=== PATIENT | female | born 1970 | race Caucasian/White ===

== ENCOUNTER 2017-03-19 03:16 | Observation (INO) ==
[2017-03-19] MEDS ORDERED: Aspirin 81 MG TAB.CHEW PO ONE (04:18)
[2017-03-19] MEDS ORDERED: 0.9 % Sodium Chloride 500 ML IVC ONE (04:18)
[2017-03-19] MEDS: Nitroglycerin 0.4 MG TAB.SUBL SL ONE ×3 (04:49→05:28)
[2017-03-19 06:06] LABS: Basophils % 0.1 %; Eosinophils # 0.1 K/mcL (0.0-0.6); Eosinophils % 0.6 %; Hematocrit 36.9 % (35.3-44.9); Hemoglobin 12.4 g/dL (11.5-15.4); Immature Granulocytes % 0.4 % (0-4); Lymphocytes # 3.3 K/mcL (0.6-4.6); Lymphocytes % 23.3 %; Mean Corpuscular HGB Conc 33.6 g/dL (31.6-35.5); Mean Corpuscular Hemoglobin 28.2 pg (28.0-33.3); Mean Corpuscular Volume 84.1 fL (83.0-100.0); Mean Platelet Volume 10.1 fL (9.4-12.4); Monocytes # 0.7 K/mcL (0.0-1.3); Monocytes % 5.2 %; Platelet Count 233 K/mcL (140-400); Red Blood Count 4.39 M/mcL (3.82-4.97); Red Cell Distribution Width 14.1 % (11.5-14.5); Segmented Neutrophils % 70.4 %
--- NOTE | 2017-03-19 06:06 | Emergency Department Note ---
Disposition Clinical Impression: Chest pain, Hypertension Disposition: Still a Patient Condition: Fair Referrals: NONE,PCP [Primary Care Provider] - Time of Disposition: 06:10 Chest Pain HPI - General Stated Complaint: CP Time Seen by Provider: 03/19/17 04:17 Source: patient Mode of arrival: private vehicle Limitations: no limitations Vital Signs Reviewed: Yes Nursing Notes Reviewed: Yes - History of Present Illness HPI Narrative: 47-year-old female patient presents to the emergency department complaining of chest pain. Patient states that this occurred while she was at rest. Patient states that she currently has some type of internal heart monitor. Patient states a history of A. fib. Patient denies any current anticoagulant use. She does state that the pain radiates from her left chest into her arm. She denies any significant shortness of breath. She denies any recent illnesses. She denies any fever, chills, nausea or vomiting. She denies any abdominal or back pain. Pt complaint: chest pain Onset (ago): hour(s) (2) Duration: constant Onset: during rest Pain Location: left chest Severity: severe Severity scale (1-10): 8 Quality: tightness, heaviness Pain Radiation: none Improves with: nothing Worsens with: nothing Associated symptoms: Denies: nausea, vomiting, diaphoresis Treatments prior to arrival chest pain: none - Related Data Allergies Allergy/AdvReac Type Severity Reaction Status Date / Time clarithromycin [From Biaxin] Allergy Vomiting Verified 10/16/15 00:40 ketorolac [From Toradol] Allergy Hives Verified 10/16/15 00:40 tramadol Allergy Hives Verified 10/16/15 00:40 iv dye Allergy Swelling Uncoded 10/16/15 00:40 of Lip/Tongue/Throat All systems ED: reviewed and negative except as stated. Constitutional: Denies: fever, chills Cardiovascular: Reports: chest pain Respiratory: Denies: cough, dyspnea Gastrointestinal: Denies: abdominal pain, nausea, vomiting Musculoskeletal: Denies: back pain, neck pain Integumentary: Denies: rash, abrasion, lesions Neurological: Denies: headache Psychiatric: Denies: anxiety, depression, suicidal thoughts, homicidal thoughts Endocrine: Denies: fatigue Chest Pain PMH - Past Medical History Medical history: Reports: asthma, atrial fibrillation, diabetes, hypertension Psychiatric history: Reports: no psych history - Social History Smoking Status: Never smoker Alcohol use: Reports: none Drug use: Reports: none Physical Exam - General Limitations: no limitations General appearance: alert, in no apparent distress - Head Head exam: atraumatic, normocephalic, normal inspection - Eye Eye exam: Present: normal appearance, PERRL - Neck Neck exam: Present: normal inspection, full ROM, trachea midline - Chest Chest inspection: Present: normal inspection, symmetric chest wall rise - Respiratory Respiratory exam: Present: normal lung sounds bilaterally. Absent: respiratory distress - Cardiovascular Cardiovascular exam: Present: regular rate, normal rhythm, normal heart sounds - Abdominal Exam Abdominal exam: Present: soft, Non-Tender, normal bowel sounds - Extremities Exam Extremities exam: Present: normal inspection, full ROM. Absent: tenderness, pedal edema - Expanded Lower Extremity Exam Gait: observed and normal - Back Exam Back exam: Present: normal inspection, full ROM. Absent: tenderness - Neurological Exam Neurological exam: Present: alert, oriented X3 - Psychiatric Psychiatric exam: Present: normal affect, normal mood - Skin Skin exam: Present: warm, dry, intact, normal color Course Course Narrative: Patient has an extremely flat affect and is a poor historian. 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 Syeda Gilbert. When asked, who made this referral she stated her family doctor, however cannot recall who her family doctor is. She is however alert and oriented 3. She does not appear ill on exam. She is nontoxic appearing. She does not appear in any acute distress. Plan is to get laboratory evaluation , cardiac enzymes, CBC, chemistries and a chest x-ray. There are no acute changes on her EKG. We will get the patient's workup and reevaluate whether she requires admission or outpatient follow-up. Vital Signs Pulse Rate 82 03/19/17 04:51 Respiratory Rate 16 03/19/17 04:51 Blood Pressure 155/102 03/19/17 04:51 O2 Sat by Pulse Oximetry 97 03/19/17 04:51 Pulse Rate 82 03/19/17 04:51 Respiratory Rate 16 03/19/17 04:51 Blood Pressure 155/102 03/19/17 04:51 O2 Sat by Pulse Oximetry 97 03/19/17 04:51 Oxygen Delivery Oxygen Delivery Room Air
[2017-03-19 06:12] LABS: INR 2.3
[2017-03-19 06:15] LABS: Activated Partial Thrombo Time 31.9 Seconds (26.0-36.0); BUN/Creatinine Ratio 14 (6-26); Blood Urea Nitrogen 11 mg/dL (7-20); Calcium 8.3 mg/dL (8.6-10.8); Carbon Dioxide 21 mEq/L (19-29); Chloride 105 mEq/L (98-109); Glucose 94 mg/dL (70-99); Osmolality,Calculated 285 (280-300); Potassium 3.3 mEq/L (3.5-4.5); Sodium 138 mEq/L (136-145); eGFR For African Americans > 60 (> 60); eGFR For Non-African Americans > 60 (> 60)
--- NOTE | 2017-03-19 07:02 | Emergency Department Note ---
Disposition Clinical Impression: Hypokalemia, Hypocalcemia Chest pain Qualifiers: Chest pain type: precordial pain Qualified Code(s): R07.2 - Precordial pain Leukocytosis, unspecified Qualifiers: Leukocytosis type: unspecified Qualified Code(s): D72.829 - Elevated white blood cell count, unspecified Disposition: Admitted As Inpatient Condition: Fair Chest Pain HPI - General Chief Complaint: ED Chest Pain Stated Complaint: CP Time Seen by Provider: 03/19/17 04:17 Source: patient Mode of arrival: private vehicle Limitations: no limitations - History of Present Illness Pain Location: left chest Severity scale (1-10): 8 Quality: tightness, heaviness Improves with: nothing Worsens with: nothing Associated symptoms: Denies: nausea, vomiting, diaphoresis - Related Data Allergies Allergy/AdvReac Type Severity Reaction Status Date / Time clarithromycin [From Biaxin] Allergy Vomiting Verified 10/16/15 00:40 ketorolac [From Toradol] Allergy Hives Verified 10/16/15 00:40 tramadol Allergy Hives Verified 10/16/15 00:40 iv dye Allergy Swelling Uncoded 10/16/15 00:40 of Lip/Tongue/Throat Constitutional: Denies: fever, chills Cardiovascular: Reports: chest pain Respiratory: Denies: cough, dyspnea Gastrointestinal: Denies: abdominal pain, nausea, vomiting Musculoskeletal: Denies: back pain, neck pain Integumentary: Denies: rash, abrasion, lesions Neurological: Denies: headache Psychiatric: Denies: anxiety, depression, suicidal thoughts, homicidal thoughts Endocrine: Denies: fatigue Chest Pain PMH - Past Medical History Medical history: Reports: asthma, atrial fibrillation, diabetes, hypertension Psychiatric history: Reports: no psych history - Social History Smoking Status: Never smoker Alcohol use: Reports: none Drug use: Reports: none Physical Exam - General Limitations: no limitations General appearance: alert, in no apparent distress Course Course Narrative: I assumed care of this patient from Eugene Johnson PA-C at shift change. Report received is that the patient is experiencing midsternal chest pain that radiates to the left upper extremity. She has a history of arrhythmia as and some type of clotting disorder. She is a very poor historian. 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 She was traveling to [place], [place] with her family when she started having chest pain and thus was brought here for evaluation. She was pain-free transiently. However, her pain has now returned. A third sublingual nitroglycerin has been ordered along with morphine and Zofran. Her vitals are normal at this time. She is not tachypneic or tachycardic. She is not hypoxic and does not feel short of breath. Her symptoms are concerning for angina. She has had no recent leg pain or swelling and no recent procedures. She denies history of PE. She has a mild leukocytosis. However, I do not see any signs of infection. She is afebrile and her only complaint is that of chest pain. She has had no cough or recent URI symptoms. She describes no recent fevers. Her x-ray does not show pneumonia. She denies any skin rashes or lesions. She denies dysuria or diarrhea. The leukocytosis is possibly a stress reaction. Her EKG is normal with the exception of occasional PVCs. The EKG is unchanged compared to October 2015. X-ray is normal. Troponin is normal. Unfortunately, the patient reports that she had a nuclear stress test done earlier this year and was told that it was abnormal. She also describes a significant family history of coronary artery disease and ACS at a young age. The hospitalist was contacted for admission to rule out ACS. The case has been discussed with Dr. Riojas. He has had [id number] time with the patient and agrees with the assessment and plan. Vital Signs Pulse Rate 82 03/19/17 04:51 Respiratory Rate 16 03/19/17 04:51 Blood Pressure 155/102 03/19/17 04:51 O2 Sat by Pulse Oximetry 97 03/19/17 04:51 Pulse Rate 76 03/19/17 06:40 Respiratory Rate 16 03/19/17 06:40 Blood Pressure 115/74 03/19/17 06:40 O2 Sat by Pulse Oximetry 97 03/19/17 06:40 Oxygen Delivery Oxygen Delivery Room Air Chest Pain - Lab Data Result diagrams: 03/19/17 05:57 03/19/17 05:57 Lab Results 03/19/17 03/19/17 03/19/17 Range/Units 05:57 05:57 05:57 WBC 14.2 H (4.3-11.1) K/mcL RBC 4.39 (3.82-4.97) M/mcL Hgb 12.4 (11.5-15.4) g/dL Hct 36.9 (35.3-44.9) % MCV 84.1 (83.0-100.0) fL MCH 28.2 (28.0-33.3) pg MCHC 33.6 (31.6-35.5) g/dL RDW 14.1 (11.5-14.5) % Plt Count 233 (140-400) K/mcL MPV 10.1 (9.4-12.4) fL Immature Gran % 0.4 (0-4) % Seg Neutrophils % 70.4 % Lymphocytes % 23.3 % Monocytes % 5.2 % Eosinophils % 0.6 % Basophils % 0.1 % Neutrophils # 10.0 H (1.6-8.9) K/mcL Lymphocytes # 3.3 (0.6-4.6) K/mcL Monocytes # 0.7 (0.0-1.3) K/mcL Eosinophils # 0.1 (0.0-0.6) K/mcL Basophils # 0.0 (0.0-0.2) K/mcL PT 25.0 H (9.4-12.1) Seconds INR 2.3 APTT 31.9 (26.0-36.0) Seconds Sodium (136-145) mEq/L Potassium (3.5-4.5) mEq/L Chloride (98-109) mEq/L Carbon Dioxide (19-29) mEq/L BUN (7-20) mg/dL Creatinine (0.57-1.11) mg/dL Est GFR ( Amer) (> 60) Est GFR (Non-Af Amer) (> 60) BUN/Creatinine Ratio (6-26) Glucose (70-99) mg/dL Calculated Osmolality (280-300) Calcium (8.6-10.8) mg/dL Troponin I (0-0.03) ng/mL B-Natriuretic Peptide 15 (0-100) pg/mL 03/19/17 03/19/17 Range/Units 05:57 05:57 WBC (4.3-11.1) K/mcL RBC (3.82-4.97) M/mcL Hgb (11.5-15.4) g/dL Hct (35.3-44.9) % MCV (83.0-100.0) fL MCH (28.0-33.3) pg MCHC (31.6-35.5) g/dL RDW (11.5-14.5) % Plt Count (140-400) K/mcL MPV (9.4-12.4) fL Immature Gran % (0-4) % Seg Neutrophils % % Lymphocytes % % Monocytes % % Eosinophils % % Basophils % % Neutrophils # (1.6-8.9) K/mcL Lymphocytes # (0.6-4.6) K/mcL Monocytes # (0.0-1.3) K/mcL Eosinophils # (0.0-0.6) K/mcL Basophils # (0.0-0.2) K/mcL PT (9.4-12.1) Seconds INR APTT (26.0-36.0) Seconds Sodium 138 (136-145) mEq/L Potassium 3.3 L (3.5-4.5) mEq/L Chloride 105 (98-109) mEq/L Carbon Dioxide 21 (19-29) mEq/L BUN 11 (7-20) mg/dL Creatinine 0.76 (0.57-1.11) mg/dL Est GFR ( Amer) > 60 (> 60) Est GFR (Non-Af Amer) > 60 (> 60) BUN/Creatinine Ratio 14 (6-26) Glucose 94 (70-99) mg/dL Calculated Osmolality 285 (280-300) Calcium 8.3 L (8.6-10.8) mg/dL Troponin I 0.00 (0-0.03) ng/mL B-Natriuretic Peptide (0-100) pg/mL
[2017-03-19] MEDS ORDERED: Ondansetron 4 MG/2 ML VIAL IVP ONE (07:03)
[2017-03-19] MEDS ORDERED: *HR* Morphine 2 MG/ML SYRINGE IVP ONE (07:03)
[2017-03-19] MEDS ORDERED: Nitroglycerin 0.4 MG TAB.SUBL SL ONE (07:04)
--- NOTE | 2017-03-19 07:24 | Emergency Department Note ---
START Narrative - START START: For this encounter, I have reviewed the [employer] CAB DRIVER or PA documentation, treatment plan, and medical decision making; and I have had face to face time with this patient. 47yo F here for intermittent chest pain. hx of angina. pt has a loop recorder from her cards dr at [facility]. cxr neg. labs neg. states she had an abnormal stress test in past. cp free at the moment. will admit for observation
[2017-03-19] MEDS ORDERED: Naloxone 0.4 MG/ML INJ IVP PRN (12:10)
[2017-03-19] MEDS ORDERED: Acetaminophen 325 MG TABLET PO PRN (12:10)
[2017-03-19] MEDS ORDERED: *HR* HYDROcodone/Acet 5/325 mg TABLET PO PRN (12:10)
[2017-03-19] MEDS ORDERED: Albuterol 2.5 MG/3 ML NEBULIZER IH PRN (12:13)
[2017-03-19] MEDS ORDERED: Dextrose Gel 15 GM PO PRN ×2 (12:18)
[2017-03-19] MEDS ORDERED: *HR* Dextrose 50 % in Water (Syg) 50 ML SYRINGE IVP PRN (12:18)
[2017-03-19] MEDS ORDERED: D5% in Water 1,000 ML IVC PRN (12:18)
[2017-03-19] MEDS ORDERED: Potassium Chloride Elixir 20 MEQ/15 ML UDC PO ONE (12:21)
[2017-03-19 12:32] LABS: Bilirubin,Urine Negative (Negative); Blood,Urine Negative (Negative); Clarity,Urine Clear (Clear); Color,Urine Yellow (Yellow); Glucose,Urine (UA) 100 mg/dL (Normal); Ketones,Urine Negative (Negative); Leukocyte Esterase,Urine Small (Negative); Nitrite,Urine Negative (Negative); PH,Urine 6.5 pH Units (5.0-8.0); Protein,Urine Negative (Neg-Trace); Specific Gravity,Urine 1.024 (1.010-1.025); Urobilinogen,Urine Normal (Normal)
[2017-03-19 12:34] LABS: Bacteria,Urine None Seen per hpf (None-Few); Hyaline Casts,Urine None Seen per lpf (None-Few); Squamous Epithelial Cell,Urine Many per lpf (None-Few)
[2017-03-19] MEDS: Pantoprazole 40 MG VIAL IVP SCH (12:53)
[2017-03-19] MEDS: Nitroglycerin 0.4 MG TAB.SUBL SL PRN ×4 (12:53→22:21)
[2017-03-19] MEDS: Ondansetron 4 MG/2 ML VIAL IVP PRN ×2 (13:14→16:20)
--- NOTE | 2017-03-19 15:50 | Internal Med History&Physical ---
<PierremichelealexusMartin askew - Last Filed: 03/19/17 16:40> Date of Encounter: 03/19/17 Time of Encounter: 12:30 Assessment and Plan (1) Chest pain Current visit: Yes Status: Acute Patient presents with several days of chest pressure with radiation to left shoulder and neck. Patient also reports being hospitalized for A. fib previously and states she has internal heart monitor placed last year. Patient reports transient chest pain and pressure, dyspnea, and fatigue. Due to patient' s report of previous DVTs, concern was for possible PE but stat D-dimer was < 215. Bilateral venous Dopplers to rule out DVTs. Echocardiogram ordered. Patient to be placed on continuous cardiac telemetry and supplemental O2 with continuous SpO2 monitoring. First and second troponins 0.00. Will trend troponin x1. Will consider stress test based on echo results as well as cardiology consult based on echo and stress test results. Patient to be monitored closely for signs of cardiac and/or respiratory distress. Qualifiers: Chest pain type: precordial pain Qualified Code(s): R07.2 - Precordial pain (2) UTI (urinary tract infection) Current visit: Yes Status: Acute Patient presents with initial U/A indicative of culture and suspected UTI. Patient has WBC of 14.2 and reports previous UTI in the past. Urine culture ordered. Blood culture ordered d/t WBC of 14.2. IV ceftriaxone 1,000 mg daily ordered for infection coverage. Will monitor patient's infection status through follow-up labs. Qualifiers: Urinary tract infection type: site unspecified Hematuria presence: without hematuria Qualified Code(s): N39.0 - Urinary tract infection, site not specified (3) Hypocalcemia Current visit: Yes Status: Acute Patient presents with acute hypocalcemia on admission with level of 8.3. Patient received 1000 mg calcium carbonate in ED. Will monitor patient's calcium level in follow-up labs. (4) Hypokalemia Current visit: Yes Status: Acute Patient presents with acute hypokalemia and potassium of 3.3 on admission. 40 mEQ by mouth administered in the ED, however patient states by mouth potassium usually does not absorb well for her. 20 mEQ elixir ordered. Will monitor patient's potassium level and follow-up labs. (5) Diabetes Current visit: Yes Status: Chronic Patient presents with reported chronic diabetes currently takes no oral anti- hyperglycemics or insulin coverage. Blood glucose monitoring before meals at bedtime. A1c ordered. Low-dose correction insulin sliding scale ordered with hypoglycemic protocol. Qualifiers: Diabetes mellitus type: type 2 Diabetes mellitus complication status: with unspecified complications Diabetes mellitus snf insulin use: without snf use Qualified Code(s): E11.8 - Type 2 diabetes mellitus with unspecified complications (6) HTN (hypertension) Current visit: Yes Status: Chronic Patient presents with history of chronic hypertension. Will monitor patient and vital signs and continue patient's metoprolol, amlodipine, and lisinopril. Qualifiers: Hypertension type: essential hypertension Qualified Code(s): I10 - Essential (primary) hypertension (7) HLD (hyperlipidemia) Current visit: Yes Status: Chronic Patient presents with history of chronic hyperlipidemia. Lipid panel ordered and we will continue patient's Lipitor. Qualifiers: Hyperlipidemia type: pure hypercholesterolemia Qualified Code(s): E78.00 - Pure hypercholesterolemia, unspecified; E78.0 - Pure hypercholesterolemia (8) DVT prophylaxis Current visit: Yes Status: Acute Patient to continue Warfarin with pharmacy dosing for DVT prophylaxis. Internal Medicine - H&P: HPI Chief complaint: Chest pain Admitted From: Emergency Dept Plans for Post Hospital Care: Home History of present illness: Ms. Gardner is a 47 year old female with medical history of asthma, paroxysmal atrial fibrillation, bradycardia, diabetes, DVTs, hypertension, and hyperlipidemia. Patient also reports TIA in January due to plaque in bilateral carotids. Patient describes several days of chest pressure with radiation to left shoulder and neck. Patient also reports being hospitalized for A. fib previously and states she has internal heart monitor placed last year. Patient reports transient chest pain and pressure, dyspnea, and fatigue but denies fever , chills, recent illness, nausea, vomiting, palpitations, abdominal pain, dizziness, lightheadedness, vision changes, presyncope, or syncope. Patient reports she has never smoked. Patient also reports having a sinus infection approximately 3 weeks ago. Patient is a very poor historian. She reports she has some type of clotting disorder, sees a it corporate recruiter at [facility], and also sees a targeteer in [place]. On admission today, patient's vital signs include heart rate of 76 bpm, which were rate of 16, BP 115/74, and SPO2 97% on room air. Abnormal labs include WBC of 14.2 PTT of 25.0 potassium of 3.3 and calcium of 8.3. Initial troponin was 0.00. Due to patient's report of previous DVTs, concern was for possible PE cyst that d-dimer ordered which was less than 215. Bilateral venous Dopplers of the patient's lower extremities ordered. Echocardiogram ordered. Single view CXR today shows no acute cardiopulmonary process. Patient's EKG today shows sinus rhythm with occasional ventricular premature complexes. Patient is hemodynamically stable and reports no acute distress on examination. Heart rate was irregular and lungs clear on auscultation no pedal edema present. Information was taken from the patient, chart review, and previous medical records and imaging. Ms. Gardner is at high risk for cardiovascular event based on history, current symptoms, and risk factors only places observation status. Time spent with patient greater than 40 minutes. Past Med Surg Social Fam HX - Past Medical History Source: patient, old records reviewed Medical history: asthma, atrial fibrillation, DVT, diabetes, hyperlipidemia, hypertension, TIA Psychiatric history: no psych history - Past Surgical History Surgical History: other (Placement of loop recorder) - Social History Smoking Status: Never smoker Smokeless Tobacco Status: No Alcohol use: none Drug use: none Current living situation: Home, With Family Activity Level: Independent ambulation Recent Out of Country Travel Within the Last 8 Weeks: No Exposure or Possible Exposure to Illness During Travel: No - Family History Mother Race: Family Member Ethnicity: Non- Living Status: Still Living Hx Family Cardiac Disorders: Yes (CAD) Hx Family Cancer: Yes (Breast Cancer) Father Race: Family Member Ethnicity: Non- Living Status: Age at : 58 Cause of : Heart Attack Hx Family Cardiac Disorders: Yes (NH, HTN, HLD) Brother Race: Family Member Ethnicity: Non- Living Status: Still Living Hx Family Medical Disorders: No Sister Race: Family Member Ethnicity: Non- Living Status: Still Living Hx Family Medical Disorders: No Grandmother Race: Family Member Ethnicity: Non- Living Status: Age at : 83 Cause of : PE Hx Family Cardiac Disorders: Yes (HD, PE) Hx Family Endocrine Disorder: Yes (DM) Grandfather Race: Family Member Ethnicity: Non- Living Status: Age at : 70 Cause of : Lung cancer Hx Family Cancer: Yes (Lung) Internal Medicine - H&P: Meds Albuterol Neb [Proventil Neb] 2.5 mg IH Q4HR PRN 03/19/17 [History] Amlodipine Besylate 10 mg PO DAILY 03/19/17 [History] Aspirin [Lo-Dose Aspirin EC] 81 mg PO DAILY 03/19/17 [History] Atorvastatin Calcium [Lipitor] 20 mg PO DAILY 03/19/17 [History] Dicyclomine [Bentyl] 10 mg PO QID PRN 03/19/17 [History] Ergocalciferol (VITAMIN D2) [Vitamin D2] 50,000 unit PO QWEEK 03/19/17 [History] Lisinopril [Zestril] 10 mg PO DAILY 03/19/17 [History] Methotrexate [Otrexup] 15 mg PO QWEEK 03/19/17 [History] Metoprolol XL (24 HR) Succ [Toprol XL] 12.5 mg PO DAILY 03/19/17 [History] Ranolazine [Ranexa] 500 mg PO BID 03/19/17 [History] Warfarin [Coumadin] 90 mg PO DAILY 03/19/17 [History] 3 Allergy/AdvReac Type Severity Reaction Status Date / Time clarithromycin [From Biaxin] Allergy Vomiting Verified 10/16/15 00:40 ketorolac [From Toradol] Allergy Hives Verified 10/16/15 00:40 tramadol Allergy Hives Verified 10/16/15 00:40 iv dye Allergy Swelling Uncoded 10/16/15 00:40 of Lip/Tongue/Throat All Systems PM: A 10-system review of systems was performed and is negative for pertinent findings except as documented above in the HPI. - Constitutional Constitutional: no chills, no fever(s), no night sweats - EENT Eyes: no change in vision, no discharge, no pain, no photophobia Ears: no ear discharge, no ear pain, no tinnitus Nose, mouth and throat: no dysphagia, no nasal discharge, no neck pain, no sore throat - Breasts Breasts: as per HPI - Cardiovascular Cardiovascular ROS IM: as per HPI, chest pain, irregular heart rhythm - Respiratory Respiratory: no cough, no dyspnea, no wheezing, no excessive phlegm production - Gastrointestinal Gastrointestinal: no abdominal pain, no diarrhea, no hematemesis, no hematochezia, no melena, no nausea, no vomiting - Genitourinary Genitourinary: no change in urinary stream, no dysuria, no flank pain, no hematuria Menstruation: as per HPI - Musculoskeletal Musculoskeletal ROS IM: no numbness, no tingling - Integumentary Integumentary IM: no rash, no unusual bruising - Neurological Neurological ROS: no confusion, no convulsions, no focal weakness, no numbness, no tingling, no tremor(s) - Psychiatric Psychiatric: as per HPI - Endocrine Endocrine IM: as per HPI - Hematologic/Lymphatic Hematologic/Lymphatic: no easy bruising - Allergic/Immunologic Allergic/Immunologic: as per HPI - Constitutional Vitals: Temp Pulse Resp BP Pulse Ox 99.1 F 81 16 133/78 96 03/19/17 14:51 03/19/17 14:51 03/19/17 14:51 03/19/17 14:51 03/19/17 14:51 General appearance: Present: cooperative, mild distress, A&O X 3, pleasant, obese, answers questions appropriately - Head Head exam: Present: atraumatic, normocephalic - Eye Eye exam: Present: PERRL, conjuntiva pink, sclera anicteric Pupils: Present: PERRL - ENT ENT exam: Present: normal exam, normal external ear exam - Neck Neck exam general surgery: Present: normal inspection, supple, trachea midline. Absent: lymphadenopathy - Respiratory Respiratory exam: Present: CTAB. Absent: accessory muscle use, rales, rhonchi, wheezes - Cardiovascular Cardiovascular exam: Present: irregular rhythm - GI/Abdominal GI/Abdominal exam: Present: normal bowel sounds, soft, no peritoneal signs. Absent: distended, tenderness - Rectal Rectal exam: Present: deferred - Additional comments: exam deferred. - Extremities Exam Extremities exam: Present: warm, radial pulses palpable and symmetrical. Absent : calf tenderness, cyanotic, pedal edema - Back Exam Back exam: Present: normal inspection - Neurological Exam Neurological exam: Present: CN II-XII intact, oriented X3, no focal deficits. Absent: pronater drift, facial droop, speech deficit - Skin Skin exam: Present: dry, intact Internal Med - H&P Results - Labs CBC & Chem 7: 03/19/17 05:57 03/19/17 05:57 Labs: Cardiac Enzymes 03/19/17 Range/Units 12:49 Troponin I 0.00 (0-0.03) ng/mL Urine 03/19/17 Range/Units 10:29 Urine Color Yellow (Yellow) Urine Clarity Clear (Clear) Urine pH 6.5 (5.0-8.0) pH Units Ur Specific [place] 1.024 (1.010-1.025) Urine Protein Negative (Neg-Trace) mg/dL Urine Glucose (UA) 100 H (Normal) mg/dL - EKG Data EKG shows normal: sinus rhythm - EKG Data Prior EKG available for review: yes EKG comments: 03/19/17 16:14 EKG dated 10/16/15 shows sinus rhythm. EKG dated 03/19/17 shows sinus rhythm with occasional ventricular premature complexes. - Diagnostic Studies Chest x-ray Additional comments: Impressions Chest X-Ray 03/19/17 04:18 IMPRESSION: No acute cardiopulmonary process. D/ / Chaim Walton MD / Chaim Walton MD Interpreting Provider: Chaim Walton MD <Dylon Wolfe R - Last Filed: 03/19/17 17:58> Date of Encounter: 03/19/17 Internal Medicine - H&P: HPI History of present illness: Ms. Gardner is a 47 year old female All Systems PM: A 10-system review of systems was performed and is negative for pertinent findings except as documented above in the HPI. - Constitutional Vitals: Temp Pulse Resp BP Pulse Ox 99.1 F 81 16 133/78 96 03/19/17 14:51 03/19/17 14:51 03/19/17 14:51 03/19/17 14:51 03/19/17 14:51 Internal Med - H&P Results - Labs CBC & Chem 7: 03/19/17 05:57 03/19/17 05:57 Labs: Cardiac Enzymes 03/19/17 Range/Units 12:49 Troponin I 0.00 (0-0.03) ng/mL Urine 03/19/17 Range/Units 10:29 Urine Color Yellow (Yellow) Urine Clarity Clear (Clear) Urine pH 6.5 (5.0-8.0) pH Units Ur Specific [place] 1.024 (1.010-1.025) Urine Protein Negative (Neg-Trace) mg/dL Urine Glucose (UA) 100 H (Normal) mg/dL - Attending Attestation I personally interviewed and examined this pt. Agree with the findings,a ssessment and plan of MAGALIE Gardner. Work up as outlined. I am not convinced she has UTI. Sx currently resolved. Trops negative. Continue to monitor.
[2017-03-19] MEDS: *HR* Morphine 2 MG/ML SYRINGE IVP PRN ×2 (16:19→22:22)
[2017-03-19] MEDS: Insulin LISPRO 300 UNITS/3 ML VIAL SQ SCH (16:54)
[2017-03-19] MEDS ORDERED: Warfarin perPT PO PRN (18:00)
[2017-03-19] MEDS ORDERED: *HR* Warfarin 10 MG TABLET PO SCH ×2 (18:00)
[2017-03-19] MEDS ORDERED: Insulin LISPRO 300 UNITS/3 ML VIAL SQ SCH (21:00)
[2017-03-19] MEDS: Ranolazine 500 MG TAB.ER.12H PO SCH (22:17)
[2017-03-20] MEDS ORDERED: *HR* Warfarin 10 MG TABLET PO SCH (06:00)
[2017-03-20 06:48] LABS: INR 1.8; Prothrombin Time 19.7 Seconds (9.4-12.1)
[2017-03-20 06:51] LABS: Activated Partial Thrombo Time 34.2 Seconds (26.0-36.0)
[2017-03-20 06:56] LABS: Basophils % 0.2 %; Eosinophils # 0.2 K/mcL (0.0-0.6); Eosinophils % 2.2 %; Hematocrit 38.1 % (35.3-44.9); Hemoglobin 12.6 g/dL (11.5-15.4); Immature Granulocytes % 0.4 % (0-4); Lymphocytes % 37.4 %; Mean Corpuscular HGB Conc 33.1 g/dL (31.6-35.5); Mean Corpuscular Hemoglobin 28.8 pg (28.0-33.3); Mean Corpuscular Volume 87.2 fL (83.0-100.0); Mean Platelet Volume 9.5 fL (9.4-12.4); Monocytes # 0.4 K/mcL (0.0-1.3); Monocytes % 5.4 %; Neutrophils # 4.4 K/mcL (1.6-8.9); Platelet Count 228 K/mcL (140-400); Red Blood Count 4.37 M/mcL (3.82-4.97); Red Cell Distribution Width 14.6 % (11.5-14.5); Segmented Neutrophils % 54.4 %
[2017-03-20 07:01] LABS: Alanine Aminotransferase 22 Units/L (0-55); Albumin 3.2 g/dL (3.5-5.0); Alkaline Phosphatase 87 Units/L (38-126); Aspartate Amino Transferase 14 Units/L (5-34); BUN/Creatinine Ratio 14 (6-26); Bilirubin,Total 0.4 mg/dL (0.2-1.2); Blood Urea Nitrogen 12 mg/dL (7-20); Calcium 8.5 mg/dL (8.6-10.8); Carbon Dioxide 24 mEq/L (19-29); Chloride 106 mEq/L (98-109); Chol/HDL Ratio 2.4 (0-4.9); Cholesterol 142 mg/dL (< 200); Globulin 3.3 g/dL (2.4-3.5); Glucose 88 mg/dL (70-99); HDL Cholesterol 59 mg/dL (40-59); LDL Cholesterol,Calculated 68 mg/dL (0-99); Magnesium 1.8 mg/dL (1.6-2.6); Osmolality,Calculated 283 (280-300); Potassium 4.1 mEq/L (3.5-4.5); Sodium 137 mEq/L (136-145); Total Protein 6.5 g/dL (6.0-8.3); Triglycerides 76 mg/dL (< 150); eGFR For African Americans > 60 (> 60); eGFR For Non-African Americans > 60 (> 60)
[2017-03-20 07:30] LABS: Hemoglobin A1C 5.6 %
[2017-03-20] MEDS: Ranolazine 500 MG TAB.ER.12H PO SCH (08:44)
[2017-03-20] MEDS: Insulin LISPRO 300 UNITS/3 ML VIAL SQ SCH ×3 (08:46→16:19)
[2017-03-20] MEDS: Pantoprazole 40 MG VIAL IVP SCH (08:47)
[2017-03-20] MEDS ORDERED: Aspirin Enteric Coated 81 MG Tablet PO SCH (09:00)
[2017-03-20] MEDS ORDERED: amLODIPine 5 MG TABLET PO SCH (09:00)
[2017-03-20] MEDS ORDERED: Metoprolol XL (24 HR) Succ 25 MG TAB.ER.24H PO SCH (09:00)
--- NOTE | 2017-03-20 15:57 | Venous Imaging Report ---
LE Venous Duplex Patient Name:Elle Gardner Order Number:[id number] Procedure Date:03/19/2017 Date:1970Age:47 yrs Gender:Female Location:[facility] Room #: 3B49 Stem Roller Operator:Dyana Hunter RDCS Referring MD:Martin Wasserman, WATER TAXI FERRY OPERATOR Reading MD:Lukas Martinez MD , FACS Primary Indications:Hx of DVT Secondary Indications: Risk Factors Yes/No Hx of DVT Yes Anticoagulants Yes Hypertension Yes Diabetes Yes Hypercholesterolemia Yes Impressions: Bilateral lower extremity: normal superficial and deep exam. Recommendations: After imaging the patient returned to their room. Findings Venous Duplex Results: Right: Venous imaging of the lower extremity reveals full patency and normal vessel compressibility of the right distal iliac, right common femoral, right superficial femoral, right popliteal, right posterior tibial, right peroneal, right great saphenous and right lesser saphenous. Doppler signals in the evaluated veins were normal. Left: Venous imaging of the lower extremity reveals full patency and normal vessel compressibility of the left distal iliac, left common femoral, left superficial femoral, left popliteal, left posterior tibial, left peroneal, left great saphenous and left lesser saphenous. Doppler signals in the evaluated veins were normal. Prior Study: No prior study available for comparison. Lower Extremity Venous Duplex Side Vein Compress Spontaneous Flow Augment Diameter (cm) Depth (cm) Right Distal Iliac Normal Yes Phasic Yes Right Common Femoral Normal Yes Phasic Yes Right Superficial Femoral Normal Yes Phasic Yes Right Popliteal Normal Yes Phasic Yes Right Posterior Tibial Normal Yes Phasic Yes Right Peroneal Normal Yes Phasic Yes Right Great Saphenous Normal Yes Phasic Yes Right Lesser Saphenous Normal Yes Phasic Yes Left Distal Iliac Normal Yes Phasic Yes Left Common Femoral Normal Yes Phasic Yes Left Superficial Femoral Normal Yes Phasic Yes Left Popliteal Normal Yes Phasic Yes Left Posterior Tibial Normal Yes Phasic Yes Left Peroneal Normal Yes Phasic Yes Left Great Saphenous Normal Yes Phasic Yes Left Lesser Saphenous Normal Yes Phasic Yes Updated by Lukas Martinez MD, FACS on 03/20/2017 3:49:22 PM Lukas Martinez MD electronically signed on 03/20/2017 3:49:49 PM with status of Final
[2017-03-20 16:11] VITALS: BP 142/92
--- NOTE | 2017-03-20 17:10 | Internal Med Progress Note ---
Date of Encounter: 03/20/17 Time of Encounter: 15:50 - Assessment and plan (1) Chest pain Current Visit: Yes Status: Acute Assessment and plan: Patient denies chest pain currently. Patient had an echocardiogram today. LVEF 6065%, no significant valvular dysfunction. Is requesting cardiology outpatient consultation. We will consult cardiology in the morning Continue telemetry Nitroglycerin for chest pain Cardiology consult Continue aspirin, Coumadin, Lipitor, and beta cristóbal. Patient also takes Ranexa. Qualifiers: Chest pain type: precordial pain Qualified Code(s): R07.2 - Precordial pain (2) Hypokalemia Current Visit: Yes Status: Resolved (3) Hypocalcemia Current Visit: Yes Status: Acute Assessment and plan: Improving. Continue calcium carbonate. (4) UTI (urinary tract infection) Current Visit: Yes Status: Acute Assessment and plan: Urine culture was negative. Rocephin has been stopped. Qualifiers: Urinary tract infection type: site unspecified Hematuria presence: without hematuria Qualified Code(s): N39.0 - Urinary tract infection, site not specified (5) DVT prophylaxis Current Visit: Yes Status: Acute Assessment and plan: Patient is on Coumadin. She is ambulatory. (6) Diabetes Current Visit: Yes Status: Chronic Assessment and plan: A1c is 5.6. Continue Accu-Cheks, sliding scale insulin, diabetic diet. Qualifiers: Diabetes mellitus type: type 2 Diabetes mellitus complication status: with unspecified complications Diabetes mellitus assisted insulin use: without assisted use Qualified Code(s): E11.8 - Type 2 diabetes mellitus with unspecified complications (7) HTN (hypertension) Current Visit: Yes Status: Chronic Assessment and plan: Continue home medications. Qualifiers: Hypertension type: essential hypertension Qualified Code(s): I10 - Essential (primary) hypertension - Time Spent With Patient less than 15 minutes - Subjective Interval history: Patient was seen and assessed at 1550. She is resting quietly and darkened room in alert and oriented. She states right now she is just okay. She denies chest pain at this time. She is unable to pinpoint when her chest pain started , she states that she was in the car 2 hours away when it began and she came immediately to the emergency department. She says pressure in the midsternal area that radiates to the left shoulder at times. Currently she is chest pain free. During the discussion, she states that she had her chest pain several days ago, then states that her chest pain actually began in November when she had [place] stress [place]. She says that she had a stress test in [place] and is unsure where, what city, or what hospital. I suggested she try to remember so we could not get the test results. She said that she had an abnormal area in the "top part of her heart" and required a stress test, however she declined. She also states that she has an internal chest monitor for bradycardia and "arrhythmia". Says sometimes she has A. fib and she has had this for 4 years. She does not have a director systems and states that she only follows up with EP if there something wrong with the implanted device. There is no note of the device on either the echo or the chest x-ray. Patient states his I am leaving the room that she would like to just have an outpatient cardiology consultation would like to go home. - Constitutional Vitals: Temp Pulse Resp BP Pulse Ox 98.1 F 92 14 142/92 97 03/20/17 16:09 03/20/17 16:09 03/20/17 16:09 03/20/17 16:03/20/17 16:09 General appearance: Present: cooperative, mild distress, A&O X 3, pleasant, obese, answers questions appropriately - Head Head exam: Present: atraumatic, normal inspection, normocephalic - Eye Eye exam: Present: normal appearance, conjuntiva pink, sclera anicteric - Neck Neck exam general surgery: Present: normal inspection, supple, trachea midline. Absent: lymphadenopathy, tenderness - Respiratory Respiratory exam: Present: CTAB. Absent: accessory muscle use, chest wall tenderness, decreased breath sounds, rales, rhonchi, wheezes - Cardiovascular Cardiovascular exam: Present: RRR, +S1, +S2. Absent: diastolic murmur, gallop, rubs, systolic murmur - GI/Abdominal GI/Abdominal exam: Present: normal bowel sounds, soft, no peritoneal signs. Absent: distended, tenderness - Extremities Exam Extremities exam: Present: normal inspection, warm, radial pulses palpable and symmetrical. Absent: calf tenderness, cyanotic, pedal edema, tenderness - Neurological Exam Neurological exam: Present: alert, oriented X3, no focal deficits. Absent: facial droop, speech deficit - Skin Skin exam: Present: dry, intact, normal color, warm. Absent: rash Internal Medicine: Result - Labs CBC & Chem 7: 03/20/17 06:35 03/20/17 06:35 Labs: Short CBC 03/20/17 Range/Units 06:35 WBC 8.0 (4.3-11.1) K/mcL Hgb 12.6 (11.5-15.4) g/dL Hct 38.1 (35.3-44.9) % Plt Count 228 (140-400) K/mcL Neutrophils # 4.4 (1.6-8.9) K/mcL BMP 03/20/17 06:35 Sodium 137 Potassium 4.1 Chloride 106 Carbon Dioxide 24 BUN 12 Creatinine 0.83 Glucose 88 Calcium 8.5 L Cardiac Enzymes 03/19/17 Range/Units 17:51 Troponin I 0.00 (0-0.03) ng/mL Liver Function 03/20/17 Range/Units 06:35 Total Bilirubin 0.4 (0.2-1.2) mg/dL AST 14 (5-34) Units/L ALT 22 (0-55) Units/L Alkaline Phosphatase 87 (38-126) Units/L Albumin 3.2 L (3.5-5.0) g/dL - ABG Interpretation ABG results: PT/INR, D-dimer PT 19.7 Seconds (9.4-12.1) H 03/20/17 06:35 D-Dimer < 215 ng/mLFEU (0-500) 03/19/17 12:49 Consult Discharge Plan - Plan
[2017-03-22] MEDS ORDERED: *HR* Methotrexate 2.5 MG TABLET PO SCH (09:00)
--- NOTE | 2017-03-23 18:25 | Discharge Summary ---
Date of Encounter: 03/23/17 Time of Encounter: 15:50 - Discharge Diagnosis (1) Chest pain Priority: Primary Status: Acute Comments: Denied chest pain echo done day of AMA. Patient wanted cardiology outpatient consultation. Continue aspirin, Coumadin, Lipitor, beta cristóbal patient also takes Ranexa. Qualifiers: Chest pain type: precordial pain Qualified Code(s): R07.2 - Precordial pain (2) Hypokalemia Priority: Secondary Status: Resolved Comments: Resolved. (3) Hypocalcemia Priority: Secondary Status: Acute Comments: It was improving prior to her signing out AMA. (4) UTI (urinary tract infection) Priority: Secondary Status: Acute Comments: Patient was treated empirically. Urine culture was negative. Rocephin was stopped. Qualifiers: Urinary tract infection type: site unspecified Hematuria presence: without hematuria Qualified Code(s): N39.0 - Urinary tract infection, site not specified (5) DVT prophylaxis Priority: Secondary Status: Acute Comments: Patient was on Coumadin. She was ambulatory. (6) Diabetes Priority: Secondary Status: Chronic Comments: She was to continue home medications on discharge. Continue Accu-Cheks per her schedule. Qualifiers: Diabetes mellitus type: type 2 Diabetes mellitus complication status: with unspecified complications Diabetes mellitus corral boss insulin use: without corral boss use Qualified Code(s): E11.8 - Type 2 diabetes mellitus with unspecified complications (7) HTN (hypertension) Priority: Secondary Status: Chronic Comments: Continue home medications. Qualifiers: Hypertension type: essential hypertension Qualified Code(s): I10 - Essential (primary) hypertension - Discharge Medications Home Medications: Albuterol Neb [Proventil Neb] 2.5 mg IH Q4HR PRN 03/19/17 [History] Amlodipine Besylate 10 mg PO DAILY 03/19/17 [History] Aspirin [Lo-Dose Aspirin EC] 81 mg PO DAILY 03/19/17 [History] Atorvastatin Calcium [Lipitor] 20 mg PO DAILY 03/19/17 [History] Dicyclomine [Bentyl] 10 mg PO QID PRN 03/19/17 [History] Ergocalciferol (VITAMIN D2) [Vitamin D2] 50,000 unit PO QWEEK 03/19/17 [History] Lisinopril [Zestril] 10 mg PO DAILY 03/19/17 [History] Methotrexate [Otrexup] 15 mg PO QWEEK 03/19/17 [History] Metoprolol XL (24 HR) Succ [Toprol XL] 12.5 mg PO DAILY 03/19/17 [History] Ranolazine [Ranexa] 500 mg PO BID 03/19/17 [History] Warfarin [Coumadin] 90 mg PO DAILY 03/19/17 [History] Allergies/Adverse Reactions: 3 Allergy/AdvReac Type Severity Reaction Status Date / Time clarithromycin [From Biaxin] Allergy Vomiting Verified 10/16/15 00:40 ketorolac [From Toradol] Allergy Hives Verified 10/16/15 00:40 tramadol Allergy Hives Verified 10/16/15 00:40 iv dye Allergy Swelling Uncoded 10/16/15 00:40 of Lip/Tongue/Throat Date of admission: 03/19/17 07:07 Primary care physician: PCP NONE Consults: 03/20/17 17:26 Consult to Cardiology [CONS] Routine Comment: Consulting Provider: Cardiology Kellen Reason for Consult: implanted device, history of bradycardia, a-fib. Pt admitted for chest pain. States that she recently had a stress test in November, unsure of where. Call Completed: No Discharging clinician: Elena Aldrich Anticipated date of discharge: 03/20/17 - Patient Status Disposition: Left Against Medical Advice Condition: Good Functional capacity at discharge: independent ambulation Overall status at discharge: patient is back to baseline - Discharge Instructions Follow Up With: NONE,PCP [Primary Care Provider] - Forms: ED Satisfaction Letter Additional Instructions: Patient signed out AMA after progress note was already completed. This is a late entry dated 03/23/2017. Patient signed out AMA on 03/20/2017. - Diet and Activity Diet: diabetic diet Hospital course: Ms. Gardner is a 47 year old female who was seen on 03/20/2017. This is a late entry dated 03/23/2017. Patient was seen and assessed on March 20 at 1550. She said at that time that she was okay and denied chest pain. She was unable to pinpoint when her chest pain started and that she was in the car 2 hours away when he began he came immediately to the emergency department. She said that was midsternal and radiated to the shoulder at that time. During exam she was chest pain-free. Patient stated during her assessment that her chest pain again several days ago and states that her chest pain actually began in November when she [place] stress [place]. She said was in [place] and she was unsure where and what city or what hospital. I suggested that she try to recall all family members to find out where the hospitalist so we could find the results. She said that she had had an abnormal area in the top of her heart required a stress test however she declined and went home instead. She also states that she had an internal chest monitor for bradycardia and arrhythmia and says that sometimes he has A. fib and has had this internal monitor for 4 years. 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 There was no note of the device on either the echo or the chest x-ray. Patient said she would like to have a cardiac consultation outpatient would like to go home. Later in the day she told the primary nurse that she had things that she needed to go home and do and that her neighbor had been watching her children would be unable to keep them any longer. Patient's blood cultures were negative 2 , her labs were within normal limits other than a calcium which was improving prior to her signing out AMA. Her chest x-ray was negative, troponins were negative, patient had bilateral lower extremity Dopplers that were normal superficial and deep exam, echo showed n LvEF f 6065% wth norLvedD no significant valvular dysfunction. The patient signed out AGAINST MEDICAL ADVICE. - Time Spent with Patient Total time spent providing and/or coordinating discharge services: - Constitutional Vitals: Temp Pulse Resp BP Pulse Ox 98.1 F 92 14 142/92 97 03/20/17 16:09 03/20/17 16:09 03/20/17 16:09 03/20/17 16:09 03/20/17 16:09 General appearance: Present: cooperative, mild distress, A&O X 3, pleasant, obese, answers questions appropriately - Head Head exam: Present: atraumatic, normal inspection, normocephalic - Eye Eye exam: Present: conjuntiva pink, sclera anicteric - Neck Neck exam general surgery: Present: supple, trachea midline. Absent: lymphadenopathy - Respiratory Respiratory exam: Present: CTAB. Absent: accessory muscle use, rales, rhonchi, wheezes - Cardiovascular Cardiovascular exam: Present: RRR, +S1, +S2. Absent: diastolic murmur, gallop, rubs, systolic murmur - GI/Abdominal GI/Abdominal exam: Present: distended, normal bowel sounds, soft. Absent: tenderness - Extremities Exam Extremities exam: Present: warm, radial pulses palpable and symmetrical. Absent : calf tenderness, cyanotic, pedal edema - Neurological Exam Neurological exam: Present: CN II-XII intact, oriented X3, no focal deficits. Absent: pronater drift, facial droop, speech deficit - Skin Skin exam: Present: dry, intact, warm
--- NOTE | 2017-03-23 20:42 | Electrocardiograph Report ---
[place] [id number] Test Date: 2017-03-19 Pat Name: Elle Gardner Department: 105 Room: 3B Gender: F Network Analyst: : 1970 Requested By: Willie Johnson Order Number: [id number] Reading MD: Brant Wood MD Measurements Intervals [place] Rate: 81 P: 49 NC: 130 QRS: 58 QRSD: 97 T: 50 QT: 389 QTc: 426 Interpretive Statements SINUS RHYTHM WITH OCCASIONAL VENTRICULAR PREMATURE COMPLEXES Electronically Signed On 03-23-2017 20:40:43 EDT by Brant Wood MD
== END 2017-03-20 17:27 | disposition left against medical advice (07) ==
LOC: EMEROO 04:15 → 3BNU 04:15
PROVIDERS: ADMIT Pediatrics; ATTEND Registered Nurse